=== PATIENT | female | born 1940 | race Caucasian/White ===

== ENCOUNTER 2024-01-27 10:15 | Outpatient (NON) | payer OTHER, MEDICARE, BC, SELFPAY ==
[2024-01-27 10:42] LABS: Alanine Aminotransferase 26 U/L (6-35); Alkaline Phosphatase 123 U/L (38-126); Anion Gap 4 mmol/L (4-12); Aspartate Amino Transferase 61 U/L (14-36); Bilirubin,Total 0.6 mg/dL (0.2-1.3); Blood Urea Nitrogen 15 mg/dL (7-17); Calcium 9.8 mg/dL (8.4-10.2); Carbon Dioxide 30 mmol/L (22-30); Chloride 100 mmol/L (98-107); Estimated Glomerular Filt Rate > 60; Glucose 292 mg/dL (65-110); Phosphorus 3.2 mg/dL (2.5-4.5); Sodium 134 mmol/L (137-145); Uric Acid 2.9 mg/dL (2.5-7.5)
== END 2024-01-27 10:16 | disposition home or self-care (01) ==
LOC: ANHLAB 10:18
PROVIDERS: PCP Family Medicine; Visit Provider Physical Medicine & Rehabilitation
DX: M25.562 Pain in left knee (principal)
CPT/HCPCS: 36415; 80053; 83735; 84100; 84443; 84550

== ENCOUNTER 2024-01-28 14:21 | Emergency (ER) | payer OTHER, MEDICARE, BC, SELFPAY ==
--- NOTE | ~2024-01-28 | CT_ITS ---
CT OF left lower extremity EXAMINATION: CT LE LT wo con DATE: 01/28/2024 16:35 INDICATION: Knee pain TECHNIQUE: Computed tomography (CT) of the left lower extremity was performed without intravenous con trast. Automated exposure control and iterative reconstruction technique were employed. The dose-javed th product was 528.69 mGy-cm. COMPARISON: X-ray left knee, same date FINDINGS: Decreased mineralization. Moderate medial and lateral joint space narrowing. Moderate tricompartmenta l osteophytosis. No fracture or dislocation. No lytic or blastic lesion. No erosion or suspicious per iosteal change. Chondrocalcinosis. Moderate sized Luque's cyst. 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 The possible old fracture fragment described in the prior study corresponds t o a partially ossified fabella. The major stabilizing ligaments of the knee appear to be intact. Larg e volume joint fluid. IMPRESSION: No acute osseous finding in the left knee. Osteopenia. Moderate tricompartmental arthritis, with christin drocalcinosis. Large volume joint effusion. Moderate sized Luque's cyst. Reviewed, dictated and finalized at location K. IMPRESSION: No acute osseous finding in the left knee. Osteopenia. Moderate tricompartmenta l arthritis, with chondrocalcinosis. Large volume joint effusion. Moderate size d Luque's cyst.
--- NOTE | ~2024-01-28 | XR_ITS ---
EXAM: XR knee LT min 4V DATE: 01/28/2024 16:05 HISTORY: anterior knee pain-pain with full extension . COMPARISON: None available. FINDINGS: Normal mineralization. No acute fracture or dislocation. Triangular ossific fragment proje cting along the lateral joint space, possible dystrophic ossification versus old fracture fragment. N o lytic or blastic lesion. Heterotopic calcification/ossification of soft tissues posterior to the bri int. Moderate tricompartmental arthritis. Chondrocalcinosis. No erosion or periosteal change. Large v olume joint fluid IMPRESSION: No acute fracture or dislocation. Large left knee joint effusion. Reviewed, dictated and finalized at location K.
[2024-01-28 14:40] VITALS: BP 122/45; PULSE 73; RESP 16; TEMP 36.4; O2SAT 100
--- NOTE | 2024-01-28 15:30 | ED.LOWEXIN ---
HPI - Extremity Injury (Lower) General Chief Complaint: Extremity Injury, Lower Stated Complaint: KNEE PAIN Time Seen by Provider: 01/28/24 15:30 Focused HPI: Bella is an 83-year-old female patient presenting to the clinic today with complaints of left knee pain x2 days. She reports she is unable to participate in therapy at the [facility] due to the left knee pain. States that 2 days ago they were taking her pants off and she possibly hyper extended the knee. Family member reports she had swelling to the medial knee however that has gone down. Patient reports pain to the anterior knee and pain with full extension of the knee. Patient states she cannot stand, walk, or do her therapy due to the knee pain. General: Well-developed, well nourished, in no apparent distress Head: Normocephalic, atraumatic. Cardio: Regular rate and rhythm, s1 and s2 normal, no murmur appreciated. Resp: Clear to auscultation bilaterally, no rhonchi, rales, wheezing or rubs. Musculoskeletal: No deformity,tender to palpation over the mid anterior knee joint, pain with full extension over the anterior knee joint, no pain to palpation over the medial, lateral, or posterior knee, negative for anterior-posterior drawer testing, grossly normal range of motion, muscle strength strong and equal, peripheral pulse strong, no edema, no cyanosis, sitting in wheelchair Patient screened in triage and initial orders placed. Additional care and disposition to be based upon diagnostic testing and treatment. Source: patient Mode of arrival: ambulatory Limitations: no limitations Related Data Home Medications Medication Instructions Recorded Confirmed acetaminophen 325 mg capsule 650 mg PO HS 01/21/24 01/21/24 (Tylenol) ascorbic acid (vitamin C) 1,000 mg 1,000 mg PO DAILY 01/21/24 01/21/24 tablet aspirin 81 mg capsule 81 mg PO DAILY 01/21/24 01/21/24 cholecalciferol (vitamin D3) 125 125 mcg PO DAILY 01/21/24 01/21/24 mcg (5,000 unit) capsule clopidogrel 75 mg tablet 75 mg PO DAILY 01/21/24 01/21/24 cyclosporine 0.05 % eye drops in a 1 drp EACH EYE Q12H 01/21/24 01/21/24 dropperette (Restasis) insulin aspart U-100 100 unit/mL 1 sliding scale dose subcut 01/21/24 01/21/24 subcutaneous solution (Novolog USEASDIRECTD U-100 Insulin aspart) insulin glargine 100 unit/mL 34 unit subcut QPM 01/21/24 01/21/24 subcutaneous solution metoprolol succinate 25 mg 12.5 mg PO DAILY 01/21/24 01/21/24 tablet,extended release 24 hr (Toprol XL) rosuvastatin 20 mg tablet 20 mg PO DAILY 01/21/24 01/21/24 semaglutide 0.25 mg or 0.5 mg (2 0.5 mg subcut WEEKLY 01/21/24 01/21/24 mg/3 mL) subcutaneous pen injector (Ozempic) Allergies Allergy/AdvReac Type Severity Reaction Status Date / Time atorvastatin Allergy Unknown Verified 01/22/24 18:21 Review of Systems Review of Systems: Pertinent positives per HPI. Patient denies any fever, chills, rash, headache, visual changes, dizziness, cough, runny nose, sore throat, shortness of breath, chest pain, palpitations, nausea, vomiting, diarrhea, constipation, abdominal pain, or any urinary issues. [facility] Past Medical History Medical History Retinopathy due to secondary diabetes mellitus Family History Family History Other Unknown family medical history Social History Social History Alcohol intake: never Substance use: never Substance use type: does not use Do You Feel Safe in your Home?: Yes Lack of Transportation: No Lack of Food: Never True Current Housing: I Have Housing Concerned About Future Housing: No Difficulty Paying Gas/Electric Bills: No Difficulty Paying for Meds: No Currently Unemployed: No Education: Don't Know Difficulty w/ Childcare or Family Care: No Spiritual care conc
[2024-01-28 18:27] LABS: Glucose Point of Care 237 mg/dl (65-105)
--- NOTE | 2024-01-28 18:31 | PC.NURSE ---
[facility] no [facility].
== END 2024-01-28 18:58 ==
LOC: ANHED 18:17
PROVIDERS: Emergency Provider Nurse Practitioner Family; PCP Family Medicine
DX: M71.22 Synovial cyst of popliteal space [Baker], left knee (principal); M25.562 Pain in left knee; M25.462 Effusion, left knee; E11.319 Type 2 diabetes mellitus with unspecified diabetic retinopathy without macular edema; Z79.82 Long term (current) use of aspirin; Z79.85 Long-term (current) use of injectable non-insulin antidiabetic drugs; Z79.4 Long term (current) use of insulin; M85.88 Other specified disorders of bone density and structure, other site; M17.12 Unilateral primary osteoarthritis, left knee; M11.262 Other chondrocalcinosis, left knee
CPT/HCPCS: 73564; 73700; 82948; 99284